=== PATIENT | female | born 1955 | race Caucasian/White ===

== ENCOUNTER 2019-04-30 20:07 | Emergency (ER) | payer MEDICAID ==
[~2019-04-30] VITALS: Ht 157.5 cm; Wt 64.0 kg
--- NOTE | 2019-04-30 21:07 | NUR ---
EMESISX1, -BLOOD PT WAS SEEN BY MD FOR HX AND PHYSICAL
[2019-04-30] MEDS ORDERED: ONDANSETRON 4 MG/2 ML VIAL IM ONE ×2 (21:15→22:30)
[2019-04-30] MEDS ORDERED: HYDROMORPHONE 1 MG/1 ML DISP.SYRIN IM ONE ×2 (21:15→22:30)
[2019-04-30] MEDS ORDERED: HYDROMORPHONE 1 MG/1 ML DISP.SYRIN ONE (21:19)
[2019-04-30] MEDS ORDERED: ONDANSETRON 4 MG/2 ML VIAL ONE ×2 (21:19→22:59)
--- NOTE | 2019-04-30 22:00 | NUR ---
PT STILL NAUSEOUS,. EMESIS X2 OF CLEAR FLUID, MINIMAL ERMD AWARE PT VS STABLE AT HR 89 BP 129/70 SPO2 AT 98 RR 20
--- NOTE | 2019-04-30 22:15 | NUR ---
PT STATES LESSER NAUSEA FROM REGLAN NO EMESIS PT NAD SLEEPY BUT AROUSABLE SIDWERAILS X2 UP, BED AT LOWEST POSITION
[2019-04-30] MEDS ORDERED: HYDROMORPHONE 2 MG/1 ML DISP.SYRIN ONE (22:59)
[2019-04-30] MEDS ORDERED: METOCLOPRAMIDE HCL 10 MG/2 ML VIAL IM ONE (23:15)
[2019-04-30] MEDS ORDERED: METOCLOPRAMIDE HCL 10 MG/2 ML VIAL ONE (23:17)
--- NOTE | 2019-04-30 23:50 | NUR ---
Patient discharged to home in stable conditon. Written and verbal after care instructions given. Patient verbalizes understanding of instructions. AMBULATORY W/ STABLE GAIT ALL BELONGINGS W/ PT
[2019-05-01] MEDS ORDERED: PANTOPRAZOLE SODIUM 40 MG TABLET.DR PO ONE ×2 (00:22)
[2019-05-01 01:04] VITALS: BP 130/70
== END 2019-04-30 23:50 | disposition home or self-care (01) ==
LOC: ER 20:10
DX: R51 Headache (principal); K52.9 Noninfective gastroenteritis and colitis, unspecified; Z88.5 Allergy status to narcotic agent
CPT/HCPCS: 96372 ×4; 99283; J1170; J2405 ×2; J2765; A4663